=== PATIENT | male | born 1995 | race Caucasian/White ===

== ENCOUNTER → 2018-05-01 08:28 | Outpatient (CLI) | payer OTHER, SELFPAY ==
--- NOTE | 2018-05-01 | DI.NM.S_ITS ---
PROCEDURE: NM BONE 3 PHASE RADIOPHARMACEUTICAL: 19.1 mCi Tc-99m MDP IV. INDICATIONS: PAIN IN RIGHT FOOT TECHNIQUE: Multiple bone scintigrams were obtained after intravenous injection of Tc-99m MDP, including flow, blood pool, and delayed images centered to the region of interest. COMPARISON: [facility], CR, XR FOOT 3+ VIEWS RIGHT, 04/18/2018, 10:09. FINDINGS: There is a midfoot region of focal elevated isotope deposition which anatomically is estimated to be at the base of the second metatarsal bone. Additionally noted are medial first metatarsal head small foci of elevated uptake in the area of the medial sesamoid bones in that area, and elsewhere the bone scan appearance is normal. IMPRESSION: Medial first metatarsal head sesamoid bone mild uptake bilaterally. More prominently present is abnormal uptake at the expected anatomic position of the base of the second metatarsal bone, where no discrete osseous abnormality can be identified on comparison right foot plain film imaging from 04/18/18. Dictated by: Mike Rangel M.D. on 05/02/2018 at 14:30 Approved by: Mike Rangel M.D. on 05/02/2018 at 14:35
== END ==
PROVIDERS: Visit Provider Podiatrist
DX: M79.671 Pain in right foot (principal)
CPT/HCPCS: 78315; A9503